=== PATIENT | female | born 1960 | race Two or more races ===

== ENCOUNTER 2019-09-27 14:13 | Emergency (ER) | payer OTHER ==
[~2019-09-27] VITALS: Ht 172.7 cm; Wt 117.9 kg
[2019-09-27] MEDS ORDERED: CELLCEPT500 MG (14:32)
[2019-09-27] MEDS ORDERED: PLAQUENIL PO (14:33)
[2019-09-27] MEDS ORDERED: VALACYCLOVIR1000 MG PO (16:27)
[2019-09-27] MEDS ORDERED: MEDROLPACK PO (16:27)
== END 2019-09-27 16:42 | disposition home or self-care (01) ==
LOC: ER 14:13
DX: G51.0 Bell's palsy (principal)